=== PATIENT | female | born 1945 | race Caucasian/White ===

== ENCOUNTER 2017-03-30 17:59 | Emergency (ER) | payer MEDICARE, BC ==
[~2017-03-30] VITALS: Ht 149.9 cm; Wt 55.0 kg
[2017-03-30 18:10] VITALS: BP 151/66; PULSE 75; RESP 16; TEMP 98.5; O2SAT 98
[2017-03-30] MEDS ORDERED: GLAUCOMA GTTS (18:27)
[2017-03-30] MEDS ORDERED: CHOL. MED (18:27)
[2017-03-30] MEDS ORDERED: LIDOCAINE 1%/EPINEPHrine 1:100,000 SOLN 20 ML VIAL INFIL ONE (18:30)
[2017-03-30] MEDS ORDERED: LIDOCAINE 2%/EPINEPHrine PF 1:200,000 20ML SDV INFIL ONE (18:45)
--- NOTE | 2017-03-30 18:46 | PD ---
HPI . facial laceration Chief Complaint: Laceration/Skin Injury Time Seen by Provider: 18:26 Travel History International Travel<30 days: No Contact w/Intl Traveler<30days: No Traveled to known affect area: No History of Present Illness HPI 71-year-old female presents emergency department for evaluation of laceration that she sustained when she tripped and fell and hit her face on the ground. Patient denies any loss consciousness. Patient is on a low-dose aspirin daily however is not on any other blood thinners. Patient denies any chest pain, shortness breath, fever, chills, malaise or lightheadedness. Patient was ambulatory through triage. Patient has no other injuries such as erythema or ecchymosis or abrasions. No obvious deformities. PFSH Past Medical History High Cholesterol: Yes Diminished Hearing: No Glaucoma: Yes Tetanus Vaccination: < 5 Years ?: Not Past Surgical History Cholecystectomy: Yes Gynecologic Surgery: Yes (SX. FOR ENDOMETRIOSIS) Social History Alcohol Use: Yes (SOC) Tobacco Use: No Substance Use: No Allergies-Medications (Allergen,Severity, Reaction): Coded Allergies: codeine (Verified Allergy, Unknown, 03/30/17) Reported Meds & Prescriptions Reported Meds & Active Scripts Active Reported [Glaucoma Gtts] [Chol. Med] Review of Systems Except as stated in HPI: all other systems reviewed are Neg Physical Exam Narrative GENERAL: Well-nourished, well-developed 71-year-old female patient in no acute distress. SKIN: Focused skin assessment warm/dry. HEAD: 1 cm laceration noted to the right frontal aspect of forehead proximal to right eyebrow. Normocephalic. EYES: No scleral icterus. No injection or drainage. NECK: Supple, trachea midline. No JVD or lymphadenopathy. CARDIOVASCULAR: Regular rate and rhythm without murmurs, gallops, or rubs. RESPIRATORY: Breath sounds equal bilaterally. No accessory muscle use. GASTROINTESTINAL: Abdomen soft, non-tender, nondistended. MUSCULOSKELETAL: No obvious deformities. No cyanosis, or edema. BACK: No midline spinal tenderness. Nontender without obvious deformity. No CVA tenderness. Data Data Last Documented VS Vital Signs Date Time Temp Pulse Resp B/P (MAP) Pulse Ox O2 Delivery O2 Flow Rate FiO2 03/30/17 18:10 98.5 75 16 151/66 (94) 98 Orders Orders Apply Cervical Collar (03/30/17 18:14) Ct Brain W/O Iv Contrast(Rout) (03/30/17 ) Ct Facial Bones W/O Iv Cont (03/30/17 ) Ct Cerv Spine W/O Contrast (03/30/17 ) Lidoca-Epi Pf 2%-1:200,000 Inj (Xylocain (03/30/17 18:45) MDM Medical Decision Making Medical Screen Exam Complete: Yes Emergency Medical Condition: Yes Differential Diagnosis Differential diagnoses include but not limited to laceration, ICH, cervical spine fracture, syncope Narrative Course 71-year-old female patient presents emergency for evaluation of a laceration she sustained when she tripped and fell at the grocery store. The laceration is approximately 1 cm on the right frontal aspect of her forehead proximal to her right eyebrow. Patient denies any loss consciousness. CT of the brain, facial bones and cervical spine ordered and pending. Laceration of the face will be repaired. Please see my procedural narrative. CT scan of the brain shows no acute abnormalities. CT of brain and cervical spine shows no acute fractures.Based on patient's symptoms, clinical presentation, radiological results, vital sign review and physical exam it is not necessary to admit the patient to the hospital or keep the patient in the emergency department for further evaluation. Patient will be discharged home with instructions to follow -up with primary care and have the sutures removed in 5-7 days. Procedures Procedure Narrative LACERATION LOCATION: Right lateral aspect of face proximal to right eyebrow LENGTH: 1cm NUMBER OF STITCHES/DARYL: 3 x 4. 0 Prolene REPAIR: The area of the laceration was prepped with Betadine and sterilely draped. The laceration was infiltrated with 2% lidocaine with epi. The wound was copiously irrigated and explored without evidence of foreign body, tendon injury or neurovascular injury. The wound was closed using 3 sutures of 4. 0 Prolene. This was a single layer repair. A sterile dressing was applied. The patient was advised to keep the dressing clean and dry. Patient tolerated the procedure well. Diagnosis Primary Impression: Facial laceration Qualified Codes: S01.81XA - Laceration without foreign body of other part of head, initial encounter Patient Instructions: General Instructions, Laceration (DC) Additional Instructions: Please return to emergency department if your symptoms return or worsen. Follow up with your primary care provider. May use ice for pain or swelling. Keep wound clean and dry May use [id number] Motrin as needed for pain and swelling Have sutures removed in 5-7 days. Take medications as prescribed. Disposition: 01 DISCHARGE HOME Condition: Stable JuanCaroline Julianne SHAW Mar 30, 2017 18:46
--- NOTE | 2017-03-30 19:46 | RADRPT ---
EXAM DATE/TIME: 03/30/2017 19:05 [facility] COMPARISON: No previous studies available for comparison. INDICATIONS : Fall. Right frontal laceration. RADIATION DOSE: 56.88 CTDIvol (mGy) MEDICAL HISTORY : Hypercholesterolemia. SURGICAL HISTORY : Cholecystectomy. ENCOUNTER: Initial ACUITY: 1 day PAIN SCALE: 5/10 LOCATION: Right frontal TECHNIQUE: Multiple contiguous axial images were obtained of the head. Using automated exposure control and adj ustment of the mA and/or kV according to patient size, radiation dose was kept as low as reasonably a chievable to obtain optimal diagnostic quality images. DICOM format image data is available electro nically for review and comparison. FINDINGS: CEREBRUM: The ventricles are normal for age. No evidence of midline shift, mass lesion, hemorrhage or acute in farction. No extra-axial fluid collections are seen. POSTERIOR FOSSA: The cerebellum and brainstem are intact. The 4th ventricle is midline. The cerebellopontine angle i s unremarkable. EXTRACRANIAL: The visualized portion of the orbits is intact. SKULL: The calvaria is intact. No evidence of skull fracture. CONCLUSION: 1. No evidence of acute intracranial pathology. No masses are identified. Tyron Pride MD on March 30, 2017 at 19:44 Board Certified Radiologist. This report was verified electronically.
--- NOTE | 2017-03-30 19:49 | RADRPT ---
EXAM DATE/TIME: 03/30/2017 19:05 [facility] COMPARISON: No previous studies available for comparison. INDICATIONS : Fall. Right frontal laceration. RADIATION DOSE: 25.83 CTDIvol (mGy) MEDICAL HISTORY : Hypercholesterolemia. SURGICAL HISTORY : Cholecystectomy. ENCOUNTER: Initial ACUITY: 1 day PAIN SCALE: 5/10 LOCATION: neck TECHNIQUE: Volumetric scanning of the cervical spine was performed. Multiplanar reconstructions in the sagittal, coronal and oblique axial planes were performed. Using automated exposure control and adjustment o f the mA and/or kV according to patient size, radiation dose was kept as low as reasonably achievable to obtain optimal diagnostic quality images. DICOM format image data is available electronically f or review and comparison. FINDINGS: Sagittal images demonstrate normal vertebral body alignment and curvature. The odontoid is intact. Th e occipital condyles and lateral masses of C1 are intact. Axial images were performed from C2-C3 to C7-T1. There is multilevel disc space narrowing and marginal osteophyte formation maximal at C5-C6 a nd C6-C7 C2-C3: No significant abnormalities identified. C3-C4: No significant abnormalities identified. C4-C5: No significant abnormalities identified. C5-C6: No significant abnormalities identified. C6-C7: There is no evidence of disc protrusion or spinal canal stenosis. There is mild facet arthritis bilat erally. C7-T1: No significant abnormalities identified. CONCLUSION: 1. There is no evidence of acute fracture. Tyron Pride MD on March 30, 2017 at 19:46 Board Certified Radiologist. This report was verified electronically.
--- NOTE | 2017-03-30 19:58 | RADRPT ---
EXAM DATE/TIME: 03/30/2017 19:05 [facility] COMPARISON: No previous studies available for comparison. INDICATIONS : Fall. Right frontal laceration. RADIATION DOSE: 25.48 CTDIvol (mGy) ; Patient motion MEDICAL HISTORY : Hypercholesterolemia. SURGICAL HISTORY : Cholecystectomy. ENCOUNTER: Initial ACUITY: 1 day PAIN SCORE: 5/10 LOCATION: Right facial TECHNIQUE: Volumetric scanning of the facial bones was performed. Using automated exposure control and adjustme nt of the mA and/or kV according to patient size, radiation dose was kept as low as reasonably achiev able to obtain optimal diagnostic quality images. DICOM format image data is available electronicSaber Hacer y for review and comparison. FINDINGS: ORBITS: The orbital and infraorbital osseous structures are intact. The retroconal structures have a normal configuration. No radiopaque foreign bodies are seen. NASAL BONE: The nasal bone and maxillary spine are intact ZYGOMATIC ARCHES: Symmetric without evidence of fracture. SINUSES: The maxillary, ethmoid and frontal sinuses are intact. No air-fluid levels seen. NASAL CAVITY: The nasal septum is intact and midline. The lacrimal ducts are intact. SOFT TISSUES: No radiopaque foreign bodies seen. No soft-tissue swelling is seen. INTRACRANIAL: No intracranial air seen. CRIBIFORM PLATE: Grossly intact. CONCLUSION: 1. There is no evidence of acute fracture. Tyron Pride MD on March 30, 2017 at 19:55 Board Certified Radiologist. This report was verified electronically.
== END 2017-03-30 20:33 | disposition home or self-care (01) ==
LOC: EDBD 17:59 → PHEFT 17:59
DX: S01.81XA Laceration without foreign body of other part of head, initial encounter (principal); W01.0XXA Fall on same level from slipping, tripping and stumbling without subsequent striking against object, initial encounter; E78.5 Hyperlipidemia, unspecified
CPT/HCPCS: 12011; 70450; 70486; 72125

== ENCOUNTER 2017-04-07 15:14 | Emergency (ER) | payer MEDICARE, BC ==
[~2017-04-07 15:14] MED LIST: CHOL. MED; GLAUCOMA GTTS
[2017-04-07 15:27] VITALS: BP 125/59; PULSE 62; RESP 16; TEMP 98; O2SAT 98
--- NOTE | 2017-04-07 15:44 | PD ---
HPI Chief Complaint: Wound/Suture/Staple Re-Check Time Seen by Provider: 15:39 Travel History International Travel<30 days: No Contact w/Intl Traveler<30days: No Traveled to known affect area: No History of Present Illness HPI Patient comes in requesting removal of sutures from her face that were placed 9 days ago right periorbital. Patient denies any complaints or concerns about them. Patient reports that she has been keeping them dry and clean as possible using soap and water as well as placing antibiotic ointment. Patient reports some tenderness to palpation but otherwise no pain. Denies any radiation. Denies any fevers. PFSH Past Medical History High Cholesterol: Yes Diminished Hearing: No Glaucoma: Yes Past Surgical History Cholecystectomy: Yes Gynecologic Surgery: Yes (SX. FOR ENDOMETRIOSIS) Social History Alcohol Use: Yes (SOC) Tobacco Use: No Substance Use: No Allergies-Medications (Allergen,Severity, Reaction): Coded Allergies: codeine (Verified Allergy, Unknown, GI UPSET, 04/07/17) Reported Meds & Prescriptions Reported Meds & Active Scripts Active Reported [Glaucoma Gtts] [Chol. Med] Review of Systems Except as stated in HPI: all other systems reviewed are Neg Physical Exam Narrative GENERAL: Well-developed, well nourished, in no acute distress, and non-ill appearing. SKIN: Stitches noted right periorbital there dry clean intact. No signs of infection. There is no drainage. No fluctuation. No crepitus. HEAD: Atraumatic. Normocephalic. EYES: Pupils equal and round. EOMI. No scleral icterus. No injection or drainage. ENT: No nasal bleeding or discharge. Mucous membranes pink and moist. NECK: Trachea midline. Supple. No nuclear rigidity. RESPIRATORY: No accessory muscle use. No respiratory distress. MUSCULOSKELETAL: No obvious deformities. No clubbing. No cyanosis. No edema. Full range of motion. NEUROLOGICAL: Awake and alert. No obvious cranial nerve deficits. Motor grossly within normal limits. Normal speech. PSYCHIATRIC: Appropriate mood and affect; insight and judgment normal. Data Data Last Documented VS Vital Signs Date Time Temp Pulse Resp B/P (MAP) Pulse Ox O2 Delivery O2 Flow Rate FiO2 04/07/17 15:27 98.0 62 16 125/59 (81) 98 Orders Orders Ed Discharge Order (04/07/17 15:44) MDM Medical Decision Making Medical Screen Exam Complete: Yes Emergency Medical Condition: No Differential Diagnosis Suture removal, wound check, wound infection, other Narrative Course Stitches removed by RN. Patient in no obvious distress upon re-evaluation. Any questions/concerns in reference to patient diagnosis/condition discussed and clarified prior to patient's discharge. Follow up with patient's primary physician or primary care clinic as needed. Instructed patient to return to ED immediately, if symptoms return/worsen. Patient showed understanding of above instructions. Further instructions and recommendations were detailed in discharge paperwork. Patient ambulated without difficulty out of ED at discharge. Diagnosis Primary Impression: Visit for suture removal Patient Instructions: General Instructions, Stitches Removal (ED) Departure Forms: Tests/Procedures Additional Instructions: Follow-up with your primary care physician as needed. Keep wound dry and clean as possible using soap and water. Use Neosporin to promote continued healing. Return to the emergency department if symptoms get worse. Disposition: 01 DISCHARGE HOME Condition: Stable Miah Jennings Apr 07, 2017 15:44
== END 2017-04-07 15:54 | disposition home or self-care (01) ==
LOC: PHEFT 15:14
DX: Z48.02 Encounter for removal of sutures (principal); E78.5 Hyperlipidemia, unspecified; H40.9 Unspecified glaucoma
CPT/HCPCS: 99281